=== PATIENT | female | born 1935 | race Hispanic/Latino ===

== ENCOUNTER 2016-07-30 09:02 | Emergency (ER) | payer MEDICAID, MEDICARE ==
[2016-07-30 09:25] VITALS: TEMP 98.6
[2016-07-30 09:51] VITALS: BMI 22.2
--- NOTE | 2016-07-30 10:26 | ED PDOC ---
Arrival/HPI - General Time Seen by Provider: 07/30/16 09:12 Historian: Patient - History of Present Illness Narrative History of Present Illness (Text): 07/30/16 10:25 A 80 year old female, whose pas medical history includes hypertension and smoker , presents to the emergency department complaining of right eye sclera redness since this morning. Patient states she woke up with this symptom but denies any pain or swelling. Patient denies any trauma, headache, dizziness, vision changes , fever, chills, nausea, vomiting, abdominal pain, urinary symptoms, chest pain , shortness of breath or any other complaints. PMD: Dr. Matthews Time/Duration: Other (This morning) Symptom Course: Unchanged Quality: Other Context: Home Past Medical History - Provider Review Nursing Documentation Reviewed: Yes - Infectious Disease Hx of Infectious Diseases: None - Tetanus Immunization Tetanus Immunization: Unknown - Cardiac Hx Pacemaker: No - Neurological Hx Paralysis: No - HEENT Hx Glaucoma: Yes - Hematological/Oncological Hx Blood Transfusions: No Hx Blood Transfusion Reaction: No Hx Cancer: Yes (Breast) - Integumentary Other/Comment: abrasion to left cheek, left chin, right knee - Musculoskeletal/Rheumatological Hx Musculoskeletal Disorders: Yes - Psychiatric Hx Emotional Abuse: No Hx Physical Abuse: No Hx Substance Use: No - Surgical History Other/Comment: R breast surgery + J Johnson - done by Dr Mcgraw - Anesthesia Hx Anesthesia Reactions: No Hx Malignant Hyperthermia: No - Suicidal Assessment Feels Threatened In Home Enviroment: No Family/Social History - Physician Review Nursing Documentation Reviewed: Yes Family/Social History: No Known Family HX Smoking Status: Current Some Days Smoker Hx Alcohol Use: No Hx Substance Use: No Hx Substance Use Treatment: No Allergies/Home Meds Allergies/Adverse Reactions: Allergies No Known Allergies Allergy (Verified 09/24/11 18:51) Home Medications: Home Meds Medication Instructions Recorded Confirmed Ascorbate Calcium [Vitamin C] 500 mg PO DAILY 08/27/15 09/03/15 Aspirin [Ecotrin] 81 mg PO DAILY 08/27/15 09/03/15 Atorvastatin [Lipitor] 10 mg PO DAILY 08/27/15 09/03/15 Dorzolamide 2%/Timolol 0.5% 1 drop OU BID 08/27/15 09/03/15 [Cosopt Ocumeter Plus 2%-0.5% 10 Ml] Multivitamin [One Daily] 1 tab PO DAILY 08/27/15 09/03/15 amLODIPine [Norvasc] 10 mg PO DAILY 08/27/15 09/03/15 Oxycodone HCl/Acetaminophen 1 tab PO TID PRN 09/03/15 09/03/15 [Percocet 325 mg-5 mg] Physical Exam - Physical Exam Narrative Physical Exam (Text): - Review of Systems Constitutional: Normal. absent: Fatigue, Weight Change, Fevers Eyes: (+) right eye sclera redness ENT: Normal Respiratory: Normal absent: SOB, Cough, Sputum Cardiovascular: Normal absent: Chest pain, Palpitations, Syncope Gastrointestinal: Normal absent: Abdominal pain, Diarrhea, Nausea, Vomiting Genitourinary: Normal. absent: Dysuria, Frequency, Hematuria Musculoskeletal: Normal. absent: Arthralgias, Back Pain, Neck Pain Skin: Normal Neurological: Normal absent: Focal Weakness Endocrine: Normal Hemo/Lymphatic: Normal Psychiatric: Normal - Physical exam Patient appears age appropriate, speaking full sentences without difficulty - Systems Exam Head: Present: Atraumatic, Normocephalic Pupils: Present: PERRL Extraocular Muscles: Present: EOMI Conjunctiva: Present: Right subconjunctival hemorrhage No: Swelling, Tenderness , hyphema Respiratory/Chest: Present: Clear to Auscultation, Good Air Exchange. No: Respiratory Distress, Accessory Muscle Use, Tachypnic Cardiovascular: Present: Regular Rate and Rhythm, Normal S1, S2, Peripheral Pulses Present. No: Murmurs Neurological: Present: GCS=15, Speech Normal, cranial nerves II through XII fully intact with no cerebellar abnormality, neuro-sensory fully intact. No focal neurological deficits. Skin: Present: Warm, Dry, Normal Color. No: Rashes Lymphatic: Present: OX3, NI, NC Psychiatric: Present: Alert, Oriented x 3, Normal Insight, Normal Concentration Vital Signs Reviewed: Yes Vital Signs Temp Pulse Resp BP Pulse Ox 07/30/16 10:45 70 17 150/71 94 L 07/30/16 09:25 98.6 F 71 16 158/77 H 92 L Temperature: Afebrile Blood Pressure: Hypertensive Pulse: Regular Respiratory Rate: Normal Appearance: Positive for: Well-Appearing, Non-Toxic, Comfortable Pain Distress: None Mental Status: Positive for: Alert and Oriented X 3 Medical Decision Making ED Course and Treatment: 07/30/16 10:25 Impression: A 80 year old female with right eye sclera redness, R. subconjunctival hemorrhage on exam. Pt denies pain or blurry vision, states she has no n/v, denies ALEX. Differential Diagnosis included but are not limited to: Right subconjunctival hemorrhage Progress Notes: I have discussed the plan with the patient, who expresses understanding. Patient in agreement with plan to be discharged home. Patient is stable for discharge. 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 - Scribe Statement The provider has reviewed the documentation as recorded by the Scribe Kendal Alejandro Provider Scribe Attestation: All medical record entries made by the Scribe were at my direction and personally dictated by me. I have reviewed the chart and agree that the record accurately reflects my personal performance of the history, physical exam, medical decision making, and the department course for this patient. I have also personally directed, reviewed, and agree with the discharge instructions and disposition. Disposition/Present on Arrival - Present on Arrival Any Indicators Present on Arrival: No History of DVT/PE: No History of Uncontrolled Diabetes: No Urinary Catheter: No History Surgical Site Infection Following: None - Disposition Have Diagnosis and Disposition been Completed?: Yes Diagnosis: Subconjunctival hemorrhage Disposition: HOME/ ROUTINE Disposition Time: 10:25 Patient Plan: Discharge Condition: GOOD Discharge Instructions (ExitCare): Subconjunctival Hemorrhage (ED) Additional Instructions: PLEASE RETURN TO THE EMERGENCY DEPARTMENT FOR NEW OR WORSENING SYMPTOMS. RETURN RIGHT AWAY IF YOU CANNOT FOLLOW UP WITH YOUR PRIMARY CARE DOCTOR, CLINIC, OR SPECIALIST IN 1-2 DAYS. Referrals: Antoinette Matthews MD [Primary Care Provider] - Follow up with primary Jeffrey Hernandez MD [Staff Provider] - Follow up with primary
[2016-07-30 10:55] VITALS: BP 150/71; PULSE 70; RESP 17; O2SAT 94
== END 2016-07-30 10:45 | disposition home or self-care (01) ==
LOC: ED 09:02
DX: H11.31 Conjunctival hemorrhage, right eye (principal); F17.210 Nicotine dependence, cigarettes, uncomplicated

== ENCOUNTER 2018-04-05 11:57 | Outpatient (CLI) | payer MEDICARE | END 2018-04-05 11:58 | disposition home or self-care (01) | LOC: RAD 11:57 ==

== ENCOUNTER 2018-07-25 10:53 | Emergency (ER) | payer MEDICARE ==
[2018-07-25 11:03] VITALS: BMI 21.2
[2018-07-25 11:06] VITALS: RESP 18; TEMP 98.1
[2018-07-25] MEDS ORDERED: Miconazole 2% Cream(30 gm) TOP STA (11:20)
--- NOTE | 2018-07-25 12:20 | ED PDOC ---
Arrival/HPI - General Chief Complaint: Hip Pain Time Seen by Provider: 07/25/18 11:12 - History of Present Illness Narrative History of Present Illness (Text): 07/25/18 11:12 Patient is an 82 year old female, with a past medical history of osteoporosis ( on vitamin D and calcium), who presents to the emergency department complaining of right hip pain since 2 days. Patient informs pain is worsened when ambulating and states she feels like it is "giving out". Patient also notes intermittent dysuria for 3 days. Patient notes secondary complaining of developing rash to groin. Patient informs using neosporin and over the counter anti-itch medication with no improvement. Patient denies fevers, abdominal pain, nausea, vomiting, hematuria, vaginal bleeding or discharge, focal weakness, paresthesias, back pain, or any other complaints. Time/Duration: < week Symptom Onset: Sudden Symptom Course: Unchanged Activities at Onset: Light Context: Home Past Medical History - Provider Review Nursing Documentation Reviewed: Yes Primary Care Provider: Antoinette Matthews - Infectious Disease Hx of Infectious Diseases: None - Tetanus Immunization Tetanus Immunization: Unknown - Cardiac Hx Hypertension: Yes Hx Pacemaker: No - Neurological Hx Paralysis: No - HEENT Hx Glaucoma: Yes - Endocrine/Metabolic Hx Diabetes Mellitus Type 2: Yes - Hematological/Oncological Hx Blood Transfusions: No Hx Blood Transfusion Reaction: No Hx Cancer: Yes (Breast) - Integumentary Other/Comment: abrasion to left cheek, left chin, right knee - Musculoskeletal/Rheumatological Hx Musculoskeletal Disorders: Yes - Psychiatric Hx Emotional Abuse: No Hx Physical Abuse: No Hx Substance Use: No - Surgical History Other/Comment: R breast surgery + J Johnson - done by Dr Mcgraw - Anesthesia Hx Anesthesia Reactions: No Hx Malignant Hyperthermia: No - Suicidal Assessment Feels Threatened In Home Enviroment: No Family/Social History - Physician Review Nursing Documentation Reviewed: Yes Family/Social History: Unknown Family HX Smoking Status: Former Smoker Hx Alcohol Use: No Hx Substance Use: No Hx Substance Use Treatment: No Allergies/Home Meds Allergies/Adverse Reactions: Allergies No Known Allergies Allergy (Verified 07/25/18 11:03) Home Medications: Home Meds Medication Instructions Recorded Confirmed Ascorbate Calcium [Vitamin C] 500 mg PO DAILY 08/27/15 09/03/15 Aspirin [Ecotrin] 81 mg PO DAILY 08/27/15 09/03/15 Atorvastatin [Lipitor] 10 mg PO DAILY 08/27/15 09/03/15 Dorzolamide 2%/Timolol 0.5% 1 drop OU BID 08/27/15 09/03/15 [Cosopt Ocumeter Plus 2%-0.5% 10 Ml] Multivitamin [One Daily] 1 tab PO DAILY 08/27/15 09/03/15 amLODIPine [Norvasc] 10 mg PO DAILY 08/27/15 09/03/15 Oxycodone HCl/Acetaminophen 1 tab PO TID PRN 09/03/15 09/03/15 [Percocet 325 mg-5 mg] Review of Systems - Review of Systems Constitutional: absent: Fevers Eyes: absent: Vision Changes ENT: absent: Hearing Changes Respiratory: absent: SOB, Cough, Sputum, Wheezing Cardiovascular: absent: Chest Pain, Palpitations Gastrointestinal: absent: Abdominal Pain, Constipation, Diarrhea, Nausea, Vomiting Genitourinary Female: Dysuria. absent: Hematuria, Vaginal Bleeding, Vaginal Discharge Musculoskeletal: Arthralgias (right hip pain). absent: Back Pain, Other (recent fall / trauma) Skin: Rash (to groin), Pruritis. absent: Abscess Neurological: absent: Headache, Dizziness, Focal Weakness, Gait Changes, Speech Changes, Facial Droop, Other (paresthesias) Physical Exam Vital Signs Reviewed: Yes Vital Signs Temp Pulse Resp BP Pulse Ox 07/25/18 11:05 98.1 F 66 18 128/58 L 96 Temperature: Afebrile Blood Pressure: Normal Pulse: Regular Respiratory Rate: Normal Appearance: Positive for: Well-Appearing, Non-Toxic, Comfortable Pain Distress: None Mental Status: Positive for: Alert and Oriented X 3 - Systems Exam Head: Present: Atraumatic, Normocephalic Pupils: Present: PERRL Extroacular Muscles: Present: EOMI Conjunctiva: Present: Normal Mouth: Present: Moist Mucous Membranes Neck: Present: Normal Range of Motion Respiratory/Chest: Present: Clear to Auscultation, Good Air Exchange. No: Respiratory Distress, Accessory Muscle Use Cardiovascular: Present: Regular Rate and Rhythm, Normal S1, S2. No: Murmurs Abdomen: No: Tenderness, Distention, Rebound, Guarding Genitourinary/Pelvic Exam: Present: Other (erythema to external labia consistent with darlene) Back: Present: Normal Inspection. No: CVA Tenderness, Midline Tenderness Upper Extremity: Present: Normal Inspection Lower Extremity: Present: Normal ROM, Tenderness (pinpoint to right hip). No: Edema Neurological: Present: GCS=15, CN II-XII Intact, Speech Normal, Motor Func Grossly Intact, Normal Sensory Function, Normal Cerebellar Funct Psychiatric: Present: Alert, Oriented x 3, Normal Insight, Normal Concentration Medical Decision Making ED Course and Treatment: 07/25/18 11:12 Impression: Do Lopez is an 82 year old female, with a past medical history of osteoporosis (on vitamin D and calcium), who presents to the emergency department complaining of right hip pain since 2 days. Patient also notes secondary complaint of developing rash to groin since 3 days. Plan: -- Miconazole 2% cream -- Urine Culture -- Urinalysis -- X-Ray hips Bilateral with Pelvis -- Reassess and disposition Prior Visits: Notes and results from previous visits were reviewed. Progress Notes: 07/25/18 12:[address] Matthews at bedside and agrees with current ED management plan. 07/25/18 13:46 Patient's xray of hip and pelvis negative. Distal pulses intact. Ambulating around the ED without issue. UA positive. Will dc with anibiotics. Fungal rash to external labia but no complaint of internal discharge. Will dc with nystatin cream. - RAD Interpretation Radiology Orders: 07/25/18 11:20 Hip Bi with Pelvis Fall Protocol [HIP MIN 2V W/ PELVIS YAEL] [RAD] Stat - Medication Orders Current Medication Orders: Discontinued Medications Miconazole Nitrate (Miconazole 2% Cream) 1 ea TOP STAT STA Stop: 07/25/18 11:21 - Scribe Statement The provider has reviewed the documentation as recorded by the Scribe Nirav Pineda All medical record entries made by the Scribe were at my direction and personally dictated by me. I have reviewed the chart and agree that the record accurately reflects my personal performance of the history, physical exam, medical decision making, and the department course for this patient. I have also personally directed, reviewed, and agree with the discharge instructions and disposition. Disposition/Present on Arrival - Present on Arrival Any Indicators Present on Arrival: No History of DVT/PE: No History of Uncontrolled Diabetes: No Urinary Catheter: No History of Decub. Ulcer: No History Surgical Site Infection Following: None - Disposition Have Diagnosis and Disposition been Completed?: Yes Diagnosis: UTI (urinary tract infection), Darlene rash of groin, Hip pain Disposition: HOME/ ROUTINE Disposition Time: 13:47 Patient Plan: Discharge Condition: GOOD Discharge Instructions (ExitCare): Urinary Tract Infection, Adult (DC), Fungal Skin Rash Additional Instructions: Follow-up with Dr. Matthews within 2 days. Return to ED if condition worsens. Take medication as prescribed. Wear loose fitting pants. Prescriptions: Cephalexin [Keflex] 500 mg PO BID #14 capsule Nystatin [Mycostatin Cream] 1 appl TOP BID #1 tube Forms: [employer] (Romansh)
[2018-07-25 12:39] LABS: PH,URINE 5.5 (4.7-8.0); URINE BILIRUBIN NEGATIVE (NEGATIVE); URINE BLOOD TRACE-INTACT (NEGATIVE); URINE GLUCOSE (UA) NEGATIVE (NEGATIVE); URINE LEUKOCYTE ESTERASE SMALL Leu/uL (NEGATIVE); URINE PROTEIN TRACE mg/dL (<30 mg/dL); URINE UROBILINOGEN 0.2 E.U./dL (<1 E.U./dL)
[2018-07-25 12:45] LABS: URINE APPEARANCE CLEAR (CLEAR); URINE COLOR YELLOW (YELLOW)
[2018-07-25 12:58] LABS: URINE AMORPHOUS SEDIMENT FEW /hpf; URINE BACTERIA MOD /hpf; URINE FINE GRANULAR CAST 0 - 2 /hpf; URINE HYALINE CAST 0 - 2 /hpf
--- NOTE | 2018-07-25 13:45 | RAD ---
PROCEDURE: Radiographs of the pelvis and bilateral hips HISTORY: R hip pain COMPARISON: None. TECHNIQUE: Three views obtained. FINDINGS: BONES: Pelvis: Unremarkable. Right hip:Unremarkable. Left hip:Unremarkable. JOINTS: Right hip: Unremarkable. Left hip: Unremarkable. Sacroiliac Joints: Unremarkable. Pubic symphysis: Unremarkable. SOFT TISSUES: Normal. OTHER FINDINGS: None. IMPRESSION: Unremarkable radiographs of the hips and pelvis.
[2018-07-25 14:21] VITALS: BP 152/76; PULSE 62; O2SAT 95
== END 2018-07-25 14:21 | disposition home or self-care (01) ==
LOC: ED 10:53
DX: M25.551 Pain in right hip (principal); N39.0 Urinary tract infection, site not specified; B37.2 Candidiasis of skin and nail; E11.9 Type 2 diabetes mellitus without complications; I10 Essential (primary) hypertension; M81.0 Age-related osteoporosis without current pathological fracture; Z87.891 Personal history of nicotine dependence